=== PATIENT | female | born 1980 | race Caucasian/White ===

== ENCOUNTER 2018-02-12 01:41 | Inpatient (IN) | payer MEDICAID, OTHER ==
[~2018-02-12] VITALS: Ht 165.1 cm; Wt 100.0 kg
[~2018-02-12 01:41] MED LIST: ALPR.25 PO; FLUO-1 PO
[2018-02-12 02:07] VITALS: BP 114/57; PULSE 71; RESP 16; TEMP 98.5; O2SAT 100
--- NOTE | 2018-02-12 02:24 | PD ---
Data Data Last Documented VS Vital Signs Date Time Temp Pulse Resp B/P (MAP) Pulse Ox O2 Delivery O2 Flow Rate FiO2 02/12/18 02:07 98.5 71 16 114/57 (76) 100 Orders Orders Psych Screen (02/12/18 02:23) MDM Supervised Visit with [facility]: No Narrative Course Patient seen and medically cleared in [place]. Plan psych screen. Bart Zelaya MD Feb 12, 2018 02:24
[2018-02-12] MEDS ORDERED: NICOTINE 21 MG/24 HR PATCH T-DERMAL ONE (03:00)
--- NOTE | 2018-02-12 03:23 | PD ---
HPI Chief Complaint: Psychiatric Symptoms Time Seen by Provider: 03:18 Travel History International Travel<30 days: No Contact w/Intl Traveler<30days: No Traveled to known affect area: No History of Present Illness HPI 37-year-old white female presents emergency department as a transfer from [facility]. Patient had been seen by the ER physician, placed under a Sigala act, and medically cleared. The patient states that she has a history of depression and anxiety. She had presented complaining of increasing depression and suicidal thoughts. She states that she has no current plan of self-harm. She is overwhelmed with anxiety. She denies any toxic ingestions. She denies any acute medical complaints other than her depression and anxiety. She is requesting a nicotine patch and something for anxiety. She states that she typically takes Xanax. Patient denies any drugs. PFSH Past Medical History Depression: Yes Diabetes: No (HYPOGLYCEMIA) Hypertension: No (HYPOTENSION) Psychiatric: Yes (PTSD) Tetanus Vaccination: < 5 Years ?: Not Past Surgical History Appendectomy: Yes Other Surgery: Yes (CLEFT PALLET REPAIR) Social History Alcohol Use: Yes (WEEKLY, NONE TODAY) Tobacco Use: Yes Substance Use: No Allergies-Medications (Allergen,Severity, Reaction): Coded Allergies: acetaminophen (Verified Allergy, Severe, SYNCOPE, 02/12/18) codeine (Verified Allergy, Severe, SYNCOPE, 02/12/18) oxycodone (Verified Allergy, Severe, SYNCOPE, 02/12/18) Reported Meds & Prescriptions Reported Meds & Active Scripts Active Keflex (Cephalexin) 500 Mg Cap 500 Mg PO Q12H 7 Days Reported Xanax (Alprazolam) 0.25 Mg Tab Unknown Dose PO Q4H PRN Prozac (Fluoxetine HCl) 10 Mg Cap Unknown Dose PO DAILY Review of Systems General / Constitutional: No: Fever Eyes: No: Visual changes HENT: No: Headaches Cardiovascular: No: Chest Pain or Discomfort Respiratory: No: Shortness of Breath Gastrointestinal: No: Abdominal Pain Genitourinary: No: Dysuria Musculoskeletal: No: Pain Skin: No Rash Neurologic: No: Weakness Psychiatric: Positive: Anxiety, Depression, Suicidal Ideations (Without a plan) , Mood Disorder, No: Disorder of Thought, Substance Abuse, Homicidal Ideation Endocrine: No: Polydipsia Hematologic/Lymphatic: No: Easy Bruising Physical Exam Narrative GENERAL: Well-nourished, well-developed patient. SKIN: Warm and dry. HEAD: Normocephalic and atraumatic. EYES: No scleral icterus. No injection or drainage. ENT: No nasal drainage noted. Mucous membranes pink. Airway patent. NECK: Supple, trachea midline. Moves head freely without obvious discomfort. CARDIOVASCULAR: Regular rate and rhythm without murmurs, gallops, or rubs. RESPIRATORY: Breath sounds equal bilaterally. No accessory muscle use. GASTROINTESTINAL: Abdomen soft, non-tender, nondistended. EXTREMITIES: No cyanosis or edema. BACK: Nontender without obvious deformity. No CVA tenderness. NEURO: Patient is alert and oriented. no sensorimotor deficits. Nonfocal. Normal speech. PSYCH: No delusions. No auditory or visual hallucinations. Data Data Last Documented VS Vital Signs Date Time Temp Pulse Resp B/P (MAP) Pulse Ox O2 Delivery O2 Flow Rate FiO2 02/12/18 02:07 98.5 71 16 114/57 (76) 100 Orders Orders Psych Screen (02/12/18 02:23) Nicotine 21 Mg Patch.24 Hr (Habitrol 21 (02/12/18 03:00) Lorazepam (Ativan) (02/12/18 03:30) Cephalexin (Keflex) (02/12/18 03:30) MDM Medical Decision Making Medical Screen Exam Complete: Yes Emergency Medical Condition: Yes Medical Record Reviewed: Yes Interpretation(s) Patient's laboratory tests have been reviewed. I reviewed the patient's UA. I suspect this is a urinary tract infection. Patient will be placed on Keflex. Differential Diagnosis MDM: High Differential diagnoses: Schizophrenia, schizoaffective disorder, bipolar, anxiety, depression, adjustment reaction, mood disorder NOS, ODD, depressive disorder NOS, infection,electrolyte abnormality, malingering. Mental health screening discussed with the patient. Psychiatric screen ordered. Narrative Course Patient has requested a nicotine patch. She is given a 21 mg nicotine patch. She has also requested something for anxiety. She is given 1 mg of Ativan p.o. Patient's urine reveals WBCs and moderate bacteria. Patient will be placed on Keflex 500 mg now and a prescription 1 p.o. twice daily for 7 days. This is medical clearance for psychiatric admission, UTI Diagnosis Primary Impression: Medical clearance for psychiatric admission Additional Impression: UTI Scripts Cephalexin (Keflex) 500 Mg Cap 500 MG PO Q12H for Infection for 7 Days, #14 CAP 0 Refills Prov: Bart Zelaya MD 02/12/18 Condition: Stable Ignacio Zavala Feb 12, 2018 03:23
[2018-02-12] MEDS ORDERED: CEPH-460 PO (03:25)
[2018-02-12] MEDS ORDERED: LORazepam 1 MG TAB PO ONE (03:30)
[2018-02-12] MEDS ORDERED: CEPHALEXIN MONOHYDRATE 500 MG CAP PO ONE (03:30)
[2018-02-12 04:58] VITALS: BP 122/68; PULSE 83; RESP 18; TEMP 99.2; O2SAT 98
[2018-02-12] MEDS: CEPHALEXIN MONOHYDRATE 500 MG CAP PO SCH ×2 (09:00→20:55)
[2018-02-12 14:05] VITALS: BP_SYST 98; BP_DIAS 36; BP_DIAS 63; PULSE 51; RESP 20
[2018-02-12 18:54] VITALS: BP 111/75; PULSE 75; RESP 18; TEMP 97.3; O2SAT 99
[2018-02-12] MEDS ORDERED: LORazepam 2 MG/ML VIAL IV PUSH PRN ×8 (19:15→20:00)
[2018-02-12] MEDS ORDERED: LORazepam 2 MG TAB PO PRN ×2 (19:15→20:00)
[2018-02-12] MEDS ORDERED: hydrOXYzine HCL 50 MG TAB PO PRN ×2 (19:15→20:00)
[2018-02-12] MEDS ORDERED: ALUMINUM/MAGNESIUM/SIMETH 30 ML CUP PO PRN ×2 (19:15→20:00)
[2018-02-12] MEDS ORDERED: FLUMAZENIL 0.5 MG/5 ML VIAL IV PUSH PRN ×2 (19:15→20:00)
[2018-02-12] MEDS ORDERED: LORazepam 1 MG TAB PO PRN ×2 (19:15→20:00)
[2018-02-12] MEDS ORDERED: MAGNESIUM HYDROXIDE SUSP 30 ML CUP PO PRN ×2 (19:15→20:00)
[2018-02-12 19:30] VITALS: BP 122/71; PULSE 66; RESP 16; TEMP 98.1; O2SAT 100
[2018-02-12] MEDS ORDERED: diphenhydrAMINE HCL 50 MG/ML VIAL - HS PRN IM (20:00)
[2018-02-12] MEDS: REMOVE OLD NICOTINE PATCH T-DERMAL SCH (21:00)
[2018-02-13 01:20] VITALS: BP 90/60; PULSE 50; RESP 16; O2SAT 100
[2018-02-13 06:00] VITALS: BP 100/59; PULSE 60; RESP 16; TEMP 97.6; O2SAT 98
[2018-02-13] MEDS: NICOTINE 21 MG/24 HR PATCH T-DERMAL SCH (08:41)
[2018-02-13] MEDS: CEPHALEXIN MONOHYDRATE 500 MG CAP PO SCH ×3 (08:41→20:58)
[2018-02-13] MEDS: FLUoxetine HCL 10 MG CAP PO SCH ×2 (08:43→08:46)
[2018-02-13] MEDS ORDERED: INFLUENZA VIRUS VACCINE (QUADRIVALENT) 0.5 ML SYR IM ONE (09:00)
[2018-02-13] MEDS ORDERED: FLUoxetine HCL 10 MG CAP PO SCH (09:00)
[2018-02-13 09:58] LABS: BICARBONATE 28.9 MEQ/L (21.0-32.0); BLOOD UREA NITROGEN 11 MG/DL (7-18); CALCIUM 8.5 MG/DL (8.5-10.1); CHLORIDE 106 MEQ/L (98-107); GLOMERULAR FILTRATION RATE 80 ML/MIN (>89); GLUCOSE,RANDOM 94 MG/DL (74-106); SODIUM (NA) 140 MEQ/L (136-145)
[2018-02-13 09:59] LABS: CHOLESTEROL 180 MG/DL (120-200); TRIGLYCERIDES 195 MG/DL (42-150)
[2018-02-13 10:01] LABS: CHOLESTEROL/ HDL RATIO 5.01 RATIO; HDL CHOLESTEROL 35.9 MG/DL (40.0-60.0); LDL CHOLESTEROL 105 MG/DL (0-99)
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
[2018-02-13] MEDS: IBUPROFEN 400 MG TAB PO PRN (15:43)
[2018-02-13] MEDS: busPIRone HCL 5 MG TAB PO SCH ×2 (15:44→20:58)
[2018-02-13 18:27] VITALS: BP 102/60; PULSE 70; RESP 18; TEMP 97.8; O2SAT 99
[2018-02-13] MEDS: diphenhydrAMINE HCL 50 MG CAP - HS PRN PO (20:59)
[2018-02-13] MEDS: REMOVE OLD NICOTINE PATCH T-DERMAL SCH (21:00)
[2018-02-14 06:21] VITALS: BP 99/56; PULSE 71; RESP 16; TEMP 98; O2SAT 98
[2018-02-14] MEDS: FLUoxetine HCL 20 MG CAP PO SCH (08:57)
[2018-02-14] MEDS: CEPHALEXIN MONOHYDRATE 500 MG CAP PO SCH ×2 (08:57→21:36)
[2018-02-14] MEDS: busPIRone HCL 5 MG TAB PO SCH ×2 (08:57→21:36)
[2018-02-14] MEDS: NICOTINE 21 MG/24 HR PATCH T-DERMAL SCH (08:58)
[2018-02-14] MEDS: IBUPROFEN 400 MG TAB PO PRN (09:01)
--- NOTE | 2018-02-14 13:25 | HHI.PYPN ---
Subjective Remarks Patient seen for follow up, chart reviewed. Discussion nursing staff reported the patient has a cooperative and compliant with medications. Patient states she is feeling "good" reports having slept fine, continues to report having anxiety but states that she is trying to cope. Patient continues report feeling depressed but denied any suicide ideations at this time. Patient reports having been visited by her family which they discussed 1 of her stressors that led to her hospitalization being that there were too many people in her home and that they are going to limit the amount of people that come to visit her in the house. Review of Systems Except as stated in HPI: all other systems reviewed are Neg Mental Status Examination Appearance: Appropriate Consciousness: Alert Orientation: Person, Place, Date/Time Motor Activity: Normal gait Speech: Unremarkable Language: Adequate Fund of Knowledge: Inadequate Attention and Concentration: Adequate Memory: Unremarkable Mood: Sad (Less so today) Affect: Anxious Thought Process & Associations: Intact, Linear Thought Content: Appropriate Hallucination Type: None Delusion Type: None Suicidal Ideation: Yes (Denies today) Suicidal Plan: No Suicidal Intention: No Homicidal Ideation: No Homicidal Plan: No Homicidal Intention: No Insight: Fair Judgment: Impulsive Results Vitals/IOs Vital Signs Date Time Temp Pulse Resp B/P (MAP) Pulse Ox O2 Delivery O2 Flow Rate FiO2 02/14/18 06:21 98.0 71 16 99/56 (70) 98 02/12/18 18:54 Room Air Intake and Output 02/14/18 02/14/18 02/15/18 08:00 16:00 00:00 Intake Total 240 ml Balance 240 ml Assessment & Plan Problem List: (1) Adjustment disorder with depressed mood ICD Codes: F43.21 - Adjustment disorder with depressed mood (2) Anxiety disorder, unspecified ICD Codes: F41.9 - Anxiety disorder, unspecified Assessment & Plan Patient this time reports having less depressed mood but continues report feeling anxious but states that she is trying to cope. Patient denies any suicide ideations at this time. Patient tolerated medications well with no adverse drug reaction. Patient was concerned with issues of tolerance and dependence as she had been on a benzodiazepine in the past but was provided psychoeducation on her current treatment regimen. We will continue current treatment for now, continue to monitor mood and behavior. Discharge planning in progress Justification for Cont. Inpt. At risk for further decompensation if at lower level of care Discharge Planning Patient return back to her residence when psychiatrically stable. Talat Diaz MD Feb 14, 2018 13:25
[2018-02-14 18:22] VITALS: BP 118/76; PULSE 63; RESP 16; TEMP 97.5; O2SAT 98
[2018-02-14] MEDS: REMOVE OLD NICOTINE PATCH T-DERMAL SCH (21:00)
[2018-02-14] MEDS: diphenhydrAMINE HCL 50 MG CAP - HS PRN PO (21:36)
[2018-02-15 06:35] VITALS: BP 96/64; PULSE 56; RESP 16; TEMP 97.6; O2SAT 96
[2018-02-15] MEDS: NICOTINE 21 MG/24 HR PATCH T-DERMAL SCH (08:37)
[2018-02-15] MEDS: busPIRone HCL 5 MG TAB PO SCH (08:37)
[2018-02-15] MEDS: FLUoxetine HCL 20 MG CAP PO SCH (08:37)
[2018-02-15] MEDS: CEPHALEXIN MONOHYDRATE 500 MG CAP PO SCH (08:37)
[2018-02-15] MEDS ORDERED: CEPH-460 PO (11:49)
[2018-02-15] MEDS ORDERED: BUSP5TAB PO (11:49)
[2018-02-15] MEDS ORDERED: FLUO20CA12 PO (11:49)
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
== END 2018-02-15 12:45 | disposition home or self-care (01) | DRG 881 ==
LOC: NEPE 01:41 → NEDA 18:42 → H260 19:34
PROVIDERS: ADMIT Student in an Organized Health Care Education/Training Program; ATTEND Student in an Organized Health Care Education/Training Program
DX: F43.21 Adjustment disorder with depressed mood (principal); R45.851 Suicidal ideations; N39.0 Urinary tract infection, site not specified; F43.10 Post-traumatic stress disorder, unspecified; F41.9 Anxiety disorder, unspecified; Z81.8 Family history of other mental and behavioral disorders; Z72.0 Tobacco use; Z91.410 Personal history of adult physical and sexual abuse
CPT/HCPCS: 80048; 80053; 80061; 80307; 81001; 83036; 84702; 85025; 87086; 99285; Q0163